=== PATIENT | female | born 1975 | race Caucasian/White ===

== ENCOUNTER 2017-12-18 14:55 | Emergency (ER) | payer OTHER ==
[~2017-12-18] VITALS: Ht 172.7 cm; Wt 89.8 kg
[2017-12-18 15:16] VITALS: BP 127/79
--- NOTE | 2017-12-18 16:14 | RADIOLOGY REPORT ---
EXAMINATION: XR HAND, LEFT CLINICAL INFORMATION: Fracture evaluation. Hit hand with hammer swelling and pain. COMPARISON: X-ray the left wrist March 2009 TECHNIQUE: PA, lateral, and oblique views of the left hand. FINDINGS: The bones and soft tissues are normal. No fracture. Alignment is anatomic. Joint spaces are maintained. No erosions or soft tissue calcifications. IMPRESSION: Normal left hand.
--- NOTE | 2017-12-18 16:19 | ED UPPER/LOWER EXTREMITY COMPL ---
History of Present Illness General Chief Complaint: Hand or Wrist Injury Stated Complaint: LT HAND INJURY Source: patient Exam Limitations: no limitations Vital Signs & Intake/Output Vital Signs & Intake/Output Vital Signs Date Time Temp Pulse Resp B/P B/P Pulse O2 O2 Flow FiO2 Mean Ox Delivery Rate 12/18 1516 98.2 85 18 127/79 97 Room Air Triage Note: PT STATES SHE HIT HER LEFT HAND WITH A HAMMER TODAY. BRUISING NOTED TO LEFT HAND. 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 Triage Nurses Notes Reviewed? yes Onset: Abrupt Duration: constant Timing: single episode today Severity: moderate Severity Numbers: 5 : No Patient currently breastfeeds: No HPI: Patient is a 42-year-old female who presents emergency room seen that while after work today patient was hammering a nail in which she actually hit the dorsal aspect of her left hand resulting cute onset of pain and swelling. No wrist pain skin still intact no bleeding Patient took ibuprofen prior to arrival (Toro Ortega) Allergies Coded Allergies: No Known Allergies (12/18/17) Reconcile Medications No Known Home Medications (Luigi Wilson DO) Past History Travel History [facility] past 21 day No Medical History Any Pertinent Medical History? none Influenza Vaccine: 05/06/13 Surgical History Surgical History: non-contributory Psychosocial History Who do you live with Family What is your primary language Uzbek Tobacco Use: Current Daily Use Daily Tobacco Use Amount/Type: => 5 Cigarettes daily ETOH Use: occasional use Illicit Drug Use: denies illicit drug use Family History Family History, If Any: MOTHER FH: cancer FH: diabetes mellitus FH: heart disease FH: stroke FATHER FH: cancer FH: stroke Hx Contributory? No (Toro Ortega) Review of Systems Review of Systems Constitutional: Reports: no symptoms. EENTM: Reports: no symptoms. Respiratory: Reports: no symptoms. Cardiovascular: Reports: no symptoms. Gastrointestinal/Abdominal: Reports: no symptoms. Genitourinary: Reports: no symptoms. Musculoskeletal: Reports: see HPI. Skin: Reports: no symptoms. Neurological/Psychological: Reports: no symptoms. Hematologic/Endocrine: Reports: no symptoms. Immunological: Reports: no symptoms. All Other Systems: Reviewed and Negative (Toro Ortega) Physical Exam Physical Exam General Appearance: no apparent distress, alert Head: atraumatic Eyes: Bilateral: normal appearance. Ears, Nose, Throat: hearing grossly normal Neck: normal inspection Cardiovascular/Respiratory: no respiratory distress Peripheral Pulses: 2+ radial (L) Neurologic/Tendon: normal sensation, normal motor functions, normal tendon functions, responds to pain, no evidence tendon injury, no pulse deficit Skin: intact, normal color, warm/dry Diagram Hands Back 1) noted swelling, ecchymosis and point tenderness, skin intact, no scaphoid tenderness mild decreased active range of motion with second digit flexion (Toro Ortega) Progress Differential Diagnosis: arterial insufficiency, compartment syndrome, contusion, dislocation, DVT, fracture, gout, septic arthritis, sprain, tendon injury Plan of Care: No osseous injury after x-rays were resulted Samuel wrap was placed by me to left hand pre-and post-neurovascular was intact Diagnostic Imaging: Viewed by Me: Radiology Read. Radiology Impression: no acute abnormality, no fracture Comments: PATIENT: RENNY BLUM PRESENT AGE: 42 PATIENT ACCOUNT NO: [id number] : 73 LOCATION: [facility] ORDERING PHYSICIAN: Luigi Wilson DO (TBS) SERVICE DATE: 12/18/17 EXAM TYPE: RAD - XRY-HAND, LEFT EXAMINATION: XR HAND, LEFT CLINICAL INFORMATION: Fracture evaluation. Hit hand with hammer swelling and pain. COMPARISON: X-ray the left wrist March 2009 TECHNIQUE: PA, lateral, and oblique views of the left hand. FINDINGS: The bones and soft tissues are normal. No fracture. Alignment is anatomic. Joint spaces are maintained. No erosions or soft tissue calcifications. IMPRESSION: Normal left hand. DICTATED BY: Gonzalo Calles MD DATE/TIME DICTATED:12/18/171608 PORTRAIT ARTIST:TOREY (Toro Ortega) Departure Departure Disposition: HOME OR SELF CARE Condition: Stable Clinical Impression Primary Impression: Contusion of left hand Referrals: Patient Has No Primary Care Dr (PCP/Family) Alberto Garsia MD Additional Instructions: As discussed begin icing the area directly 20 minutes every 2 hours, begin over- the-counter ibuprofen as directed for pain and inflammation, begin using Samuel wrap for swelling. If no better in one week follow-up with orthopedic Dr. Garsia. If symptoms worsen return to emergency room Departure Forms: Customer Survey General Discharge Information (Toro Ortega) Departure Prescriptions: Current Visit Scripts No Known Home Medications PA/BIOFUELS PROCESSING TECHNICIAN Co-Sign Statement Statement: ED Attending supervision documentation- [] I saw and evaluated the patient. I have also reviewed all the pertinent lab results and diagnostic results. I agree with the findings and the plan of care as documented in the PA's/BIOFUELS PROCESSING TECHNICIAN's documentation. [X] I have reviewed the ED Record and agree with the PA's/BIOFUELS PROCESSING TECHNICIAN's documentation. [] Additions or exceptions (if any) to the PAs/BIOFUELS PROCESSING TECHNICIAN's note and plan are summarized below: [] (Luigi Wilson DO
== END 2017-12-18 16:46 ==
LOC: ERH 14:55
DX: S60.222A Contusion of left hand, initial encounter (principal); W22.8XXA Striking against or struck by other objects, initial encounter; Y93.89 Activity, other specified; Y92.9 Unspecified place or not applicable
CPT/HCPCS: 73130-LT